=== PATIENT | female | born 1985 | race Caucasian/White ===

== ENCOUNTER 2021-06-28 16:47 | Emergency (ER) | payer MEDICAID ==
[~2021-06-28] VITALS: Ht 175.3 cm; Wt 188.2 kg
[2021-06-28 17:08] VITALS: BP 194/83
[2021-06-28] MEDS ORDERED: ACETAMINOPHEN 500 MG TAB (TYLENOL) PO STA (17:45)
--- NOTE | 2021-06-28 17:52 | Diagnostic Imaging Report ---
HISTORY: Left foot pain TECHNIQUE: 3 views left foot COMPARISON: None FINDINGS: No acute fracture or dislocation is seen in the left foot. There is mild lateral angulation at the great toe interphalangeal joint, otherwise alignment appears normal. No cortical erosions are seen. There is a small plantar calcaneal enthesophyte. IMPRESSION: 1. No acute osseous abnormalities seen in the left foot. Dictated by: Dictated on workstation # [id number]
--- NOTE | 2021-06-28 18:01 | ED Lower Extremity ---
General Chief Complaint: Lower Extremity Stated Complaint: L FOOT PAIN Nursing Triage Note: PT AMB TO FT 2 W C/O LEFT FOOT PAIN THAT RADIATES UP TO LEFT KNEE SX THIS AM. PT DENIES INJURY, A&OX4. (DEANA BATES) History of Present Illness Date Seen by Provider: Jun 28, 2021 Time Seen by Provider: 17:15 Initial Comments 36-year-old female presents for left lateral foot pain. She denies an injury. She denies any physical activity yesterday. She awoke this morning with pain and paresthesias in her fourth and fifth toe on the left foot. She has had no previous history of ankle or foot problems. She is not diabetic. She took meloxicam this morning and Tylenol at noon. Pain/Injury Location: left foot Method of Injury: unknown Modifying Factors: Improves With Rest (DEANA BATES) Allergies and Home Medications Allergies Coded Allergies: adhesive tape (Verified Allergy, Unknown, 06/28/21) Patient Home Medication List Home Medication List Reviewed: Yes (DEANA BATES) Review of Systems Constitutional: no symptoms reported, see HPI Musculoskeletal: see HPI, joint pain (Left foot, lateral aspect) (DEANA BATES) All Other Systems Reviewed Negative Unless Noted: Yes (DEANA BATES) Past Lotyzpr-Mvktfn-Rkeeuu Hx Patient Social History Tobacco Use?: No Use of E-Cig and/or Vaping dev: No Substance use?: No Alcohol Use?: No (DEANA BATES) Immunizations Up To Date Influenza Vaccine Up-to-Date: No; Not Current (DEANA BATES) Past Medical History Last Menstrual Period: Jun 21, 2021 (DEANA BATES) Family Medical History Reviewed Nursing Family Hx (DEANA BATES) Physical Exam Vital Signs Vital Signs - First Documented 06/28/21 17:08 Temp 36.2 Pulse 77 Resp 22 B/P (MAP) 194/83 (120) Pulse Ox 99 O2 Delivery Room Air (DYAN PARTIDA MD) Vital Signs Capillary Refill : Less Than 3 Seconds (DEANA BATES) Height, Weight, BMI Height: '" Weight: lbs. oz. kg; 61.00 BMI Method: General Appearance: WD/WN, no apparent distress, obese Cardiovascular: normal peripheral pulses, regular rate, rhythm Respiratory: chest non-tender, lungs clear, normal breath sounds Feet: right foot non-tender, right foot normal inspection; bilateral foot normal range of motion; left foot no evidence of injury, left foot bone tenderness (lateral aspect), left foot soft tissue tenderness (lateral and heel) Neurologic/Tendon: normal sensation, normal motor functions, normal tendon functions Neurologic/Psychiatric: no motor/sensory deficits, alert, normal mood/affect, oriented x 3 Skin: normal color, warm/dry (DEANA BATES) Progress/Results/Core Measures Results/Orders Vital Signs/I&O 06/28/21 17:08 Temp 36.2 Pulse 77 Resp 22 B/P (MAP) 194/83 (120) Pulse Ox 99 O2 Delivery Room Air (DYAN PARTIDA MD) Blood Pressure Mean: 120 Diagnostic Imaging Diagonstic Imaging: Xray Plain Films/CT/US/NM/MRI: other (foot) Comments NAME: CARLINE MARINELLI [facility] REC#: [id number] PT STATUS: REG ER : 1985 PHYSICIAN: DEANA BATES ADMIT DATE: 06/28/21/ER Draft Date of Exam:06/28/21 FOOT, LEFT, 3 VIEWS HISTORY: Left foot pain TECHNIQUE: 3 views left foot COMPARISON: None FINDINGS: No acute fracture or dislocation is seen in the left foot. There is mild lateral angulation at the great toe interphalangeal joint, otherwise alignment appears normal. No cortical erosions are seen. There is a small plantar calcaneal enthesophyte. IMPRESSION: 1. No acute osseous abnormalities seen in the left foot. Dictated on workstation # [id number] Dict: 06/28/21 1748 Trans: 06/28/21 1752 [facility] [id number] Interpreted by: NICHOLE STEVEN MD Electronically signed by: Reviewed: Reviewed by Me (DEANA BATES) Departure Impression Primary Impression: Left foot pain Disposition: 01 HOME, SELF-CARE Condition: Improved Departure-Patient Inst. Decision time for Depature: 17:50 (DEANA BATES) Referrals: HARVEY ROBERTS MD (PCP/Family) Primary Care Physician Patient Instructions: Foot Sprain (DC) Add. Discharge Instructions: Continue to use the meloxicam as prescribed. In addition take Tylenol 650 mg e very 6-8 hours as needed for pain. Use the Dirk wrap as needed. Activity as tolerated. Follow-up with your primary care provider if symptoms are not improving or worsen. Call Shawna Scales about Prescriptions that you did not receive but are listed under your name (Flexerile, Prednisone, Lidocaine patches from 06/18 and 06/19/21). Return to the emergency department for new, urgent healthcare needs. All discharge instructions reviewed with patient and/or family. Voiced understanding. ATTENDING PHYSICIAN NOTE: I was physically present as attending physician in the emergency department during the care of this patient, but I was not directly involved in the decision making or delivery of care for this patient. (DYAN PARTIDA MD) DEANA BATES Jun 28, 2021 18:01 DYAN PARTIDA MD Jun 28, 2021 19:12
== END 2021-06-28 18:32 | disposition home or self-care (01) ==
LOC: ER 16:49
DX: M79.672 Pain in left foot (principal); E66.9 Obesity, unspecified; Z68.44 Body mass index [BMI] 60.0-69.9, adult
CPT/HCPCS: 73630